=== PATIENT | male | born 1970 | race Caucasian/White ===

== ENCOUNTER 2023-02-14 16:37 | Emergency (ER) | payer MEDICAID ==
[~2023-02-14] VITALS: Ht 185.4 cm; Wt 86.2 kg
[2023-02-14] MEDS ORDERED: RABIES IMMUNE GLOBULIN/PF 150 UNIT/ML VIAL IM ONE ×2 (17:00→19:00)
[2023-02-14] MEDS ORDERED: TDAP [DIPH/PERTUSSIS/TET] 0.5 ML VIAL IM ONE ×2 (19:00→19:30)
[2023-02-14] MEDS ORDERED: RABIES VACCINE (PCEC)/PF 1 EA KIT IM ONE ×2 (19:00→19:34)
[2023-02-14] MEDS ORDERED: AMOX-430 PO (20:13)
[2023-02-14] MEDS ORDERED: AMOX/CLAVULANATE 875 MG TABLET ONE (20:16)
[2023-02-14 20:24] VITALS: BP 146/84; TEMP 98.1; O2SAT 99
[2023-02-14] MEDS ORDERED: AMOX/CLAVULANATE 875 MG TABLET PO ONE (20:30)
== END 2023-02-14 20:25 | disposition home or self-care (01) ==
LOC: ER 16:59
DX: S00.412A Abrasion of left ear, initial encounter (principal); W57.XXXA Bitten or stung by nonvenomous insect and other nonvenomous arthropods, initial encounter; Y93.89 Activity, other specified; Y92.89 Other specified places as the place of occurrence of the external cause; Y99.8 Other external cause status
CPT/HCPCS: 90375; 90715